=== PATIENT | female | born 1950 | race Caucasian/White ===

== ENCOUNTER 2016-10-29 13:13 | Observation (INO) | payer BC, OTHER ==
[~2016-10-29] VITALS: Ht 165.1 cm; Wt 64.6 kg
[~2016-10-29 13:13] MED LIST: ASPI-664 PO; BENA20TA48 PO; CLONIDINE; IBUP-1542 PO; LORA10CA PO; MTF1000T PO; NOVOLOG MIX; TRAZ100T15 PO; ZOLP5TAB PO; [UNRECOGNIZED DRUG - OTHER]; fenofibrate; flonase nasal spray
[2016-10-29] MEDS ORDERED: NITROGLYCERIN 2% 1 GM OINT PKT TD STA (13:53)
[2016-10-29] MEDS ORDERED: ASPIRIN 81 MG TAB PO STA (13:53)
[2016-10-29] MEDS ORDERED: NITROGLYCERIN (SL) 0.4 MG TAB SL PRN ×2 (14:00→17:00)
[2016-10-29 14:02] LABS: BASOPHILS % 0.2 % (0.0-2.0); EOSINOPHILS % 0.4 % (0.0-7.0); HEMATOCRIT 31.9 % (37.0-47.0); HEMOGLOBIN 10.7 g/dl (12.0-16.0); LYMPHOCYTES # 2.5 10^3/ul (0.8-2.9); LYMPHOCYTES % 30.3 % (15.0-51.0); MEAN CORPUSCULAR HEMOGLOBIN 31.5 pg (29.0-33.0); MEAN CORPUSCULAR HGB CONC 33.5 g/dl (32.0-37.0); MEAN CORPUSCULAR VOLUME 93.8 fl (82.0-101.0); MEAN PLATELET VOLUME 10.9 fl (7.4-10.4); MONOCYTE # 0.6 10^3/ul (0.3-0.9); MONOCYTES % 7.2 % (0.0-11.0); NEUTROPHIL # 5.1 10^3/ul (1.6-7.5); NEUTROPHILS % 61.4 % (39.0-77.0); PLATELET COUNT 225 10^3/UL (140-415); RED CELL DISTRIBUTION WIDTH 13.4 % (11.5-14.5); WHITE BLOOD COUNT 8.3 10^3/ul (4.8-10.8)
--- NOTE | 2016-10-29 14:17 | RADRPT ---
PROCEDURE: Ultrasound of the right lower extremity venous system. CLINICAL INDICATION: Right lower extremity pain.. TECHNIQUE: Mccarty scale with and without compression, color doppler, spectral doppler of the venous system of the right lower extremity was performed. Venous augmentation maneuvers were utilized. COMPARISON: No prior studies are available for comparison. FINDINGS: RIGHT: Common femoral vein:Patent and compressible. Femoral vein:Patent and compressible. Popliteal vein:Patent and compressible. Visualized calf veins:Patent and compressible. Soft tissues:Normal IMPRESSION: 1. No evidence of deep vein thrombosis. RPTAT: [facility] Physician Donnell Date Time Electronically viewed and signed by Physician Donnell on 10/29/2016 14:17 /
--- NOTE | 2016-10-29 14:23 | RADRPT ---
PROCEDURE: XR Chest. CLINICAL INDICATION: Chest pain. Shortness of breath. TECHNIQUE: Single frontal chest x-ray. COMPARISON: 05/23/2014 FINDINGS: The lungs are clear of acute infiltrates, edema, effusions, or masses. Calcific atherosclerosis of t he aorta is present.. The cardiomediastinal silhouette is unremarkable. The osseous structures are intact. IMPRESSION: No acute cardiopulmonary disease. RPTAT: JJ .Bakari Marlow MD, MD Date Time Electronically viewed and signed by .Bakari Marlow MD, on 10/29/2016 14:23 .L/
[2016-10-29 14:28] LABS: ALANINE AMINOTRANSFERASE 12 IU/L (13-69); ALBUMIN/GLOBULIN RATIO 1.17; ALKALINE PHOSPHATASE 99 IU/L (42-121); ANION GAP 23 (8-16); ASPARTATE AMINO TRANSFERASE 24 IU/L (15-46); BILIRUBIN,INDIRECT 0.2 mg/dl (0-1.1); BILIRUBIN,TOTAL 0.2 mg/dl (0.2-1.3); BLOOD UREA NITROGEN 25 mg/dl (7-20); CALCIUM 9.8 mg/dl (8.4-10.2); CARBON DIOXIDE 27 mmol/L (21-31); CHLORIDE 95 mmol/L (97-110); CREATININE 1.18 mg/dl (0.44-1.00); GLUCOSE 117 mg/dl (70-220); POTASSIUM 4.7 mmol/L (3.5-5.1); SODIUM 140 mmol/L (135-144); TOTAL PROTEIN 7.4 g/dl (6.1-8.1)
[2016-10-29 14:42] LABS: TROPONIN-I < 0.012 ng/ml (0.00-0.12)
[2016-10-29] MEDS ORDERED: ASPI81TA3 PO (15:16)
[2016-10-29] MEDS ORDERED: FAMO40TA52 PO (15:17)
[2016-10-29] MEDS ORDERED: ATOR10TA65 PO (15:17)
[2016-10-29] MEDS ORDERED: METF1000 PO ×2 (15:18→15:52)
[2016-10-29] MEDS ORDERED: METO-448 PO (15:51)
[2016-10-29] MEDS ORDERED: BENA20TA48 PO (15:52)
[2016-10-29] MEDS ORDERED: ASPI-664 PO (15:52)
[2016-10-29] MEDS ORDERED: ATOR80TA75 PO (15:53)
[2016-10-29] MEDS ORDERED: GLIP5TAB13 PO (15:53)
[2016-10-29] MEDS ORDERED: ZOLP5TAB7 PO (15:53)
[2016-10-29] MEDS ORDERED: SITA100T8 PO (15:53)
[2016-10-29] MEDS ORDERED: ERGO500037 PO (15:54)
[2016-10-29] MEDS ORDERED: NATE120T PO (15:55)
[2016-10-29] MEDS ORDERED: ACETAMINOPHEN 325 MG TAB PO PRN ×2 (16:30→17:00)
[2016-10-29] MEDS ORDERED: ONDANSETRON 4 MG INJ IV PRN ×2 (16:30→17:00)
--- NOTE | 2016-10-29 16:34 | ERA ---
ER Documentation Chief Complaint Date/Time DATE: 10/29/16 TIME: 16:31 Chief Complaint RT LEG PAIN , FEELING ANXIOUS INTERMITTENTLY SINCE WEDNESDAY HPI Patient is a 66-year-old female with hypertension and diabetes who presents with chest pain. She has left-sided chest pain shortness of breath which started on Wednesday. The pain comes and goes. The pain is worse at night. The patient has right-sided leg pain as well. There are no fevers and no cough. She has had no treatment as of yet. Upon review of old medical records this is the patient's third visit to the ER since 2013. Her primary doctor is Dr. Valera. ROS All systems reviewed and are negative except as per history of present illness. Medications Home Meds Reported Medications Nateglinide* (Nateglinide*) 120 Mg Tablet, 120 MG PO AC MEALS, TAB 10/29/16 Ergocalciferol (Vitamin D2) (VITAMIN D2) 50,000 Unit Capsule, 12472 UNIT PO Q7D , CAP 10/29/16 Sitagliptin* (Januvia*) 100 Mg Tablet, 100 MG PO DAILY, #30 TAB 10/29/16 Glipizide* (Glipizide*) 5 Mg Tablet, 5 MG PO AC BREAKFAST, TAB 10/29/16 Zolpidem Tartrate* (Zolpidem Tartrate*) 5 Mg Tablet, 5 MG PO QHS Y for INSOMNIA , #30 TAB 10/29/16 Atorvastatin* (Atorvastatin*) 80 Mg Tablet, 80 MG PO QHS, #30 TAB 10/29/16 Metformin Hcl* (Metformin Hcl*) 1,000 Mg Tablet, 1000 MG PO WITH BREAKFAST DINNE , #60 TAB 10/29/16 Benazepril Hcl* (Benazepril Hcl*) 20 Mg Tablet, 20 MG PO DAILY, #30 TAB 10/29/16 Aspirin* (Aspirin* EC) 81 Mg Tablet.dr, 81 MG PO DAILY, TAB 10/29/16 Metoprolol Tartrate* (Lopressor*) 25 Mg Tab, 25 MG PO BID, #60 TAB 10/29/16 Discontinued Reported Medications Metformin Hcl* (Metformin Hcl*) 1,000 Mg Tablet, 1000 MG PO WITH BREAKFAST DINNE , #60 TAB 10/29/16 Atorvastatin Calcium (Atorvastatin Calcium) 10 Mg Tablet, 10 MG PO QHS, #30 TAB 10/29/16 Famotidine* (Famotidine*) 40 Mg Tablet, 20 MG PO BID, #60 TAB 10/29/16 Aspirin* (Aspirin* Chew) 81 Mg Tab.chew, 81 MG PO DAILY, TAB.CHEW 10/29/16 [novolog mix 70/30] No Conflict Check 11/07/13 Zolpidem Tartrate* (Ambien*) 5 Mg Tablet, 5 MG PO HS Y for INSOMNIA, TAB 11/07/13 [flonase nasal spray] No Conflict Check 11/07/13 [clonidine0.1 mg] No Conflict Check 11/07/13 [fenofibrate] No Conflict Check 11/07/13 Metformin* (Glucophage*) 1,000 Mg Tablet, 1000 MG PO BID, TAB 11/07/13 Benazepril Hcl* (Benazepril Hcl*) 20 Mg Tablet, 20 MG PO DAILY, TAB 11/07/13 Loratadine* (Claritin*) 10 Mg Capsule, 10 MG PO DAILY, #1 CAP 11/07/13 Ibuprofen* (Ibuprofen*) 600 Mg Tablet, 600 MG PO Q8 Y for PAIN, #1 TAB 11/07/13 Aspirin* (Aspirin* EC) 81 Mg Tablet.dr, 81 MG PO DAILY, #1 TAB 11/07/13 [family to bring meds] No Conflict Check 11/06/13 Trazodone Hcl* (Trazodone Hcl*) 100 Mg Tablet, 100 MG PO BID, TAB 11/06/13 Allergies Allergies: Coded Allergies: Penicillins (Verified Allergy, Unknown, 10/29/16) trazodone (Verified Allergy, Unknown, 10/29/16) PMhx/Soc History of Surgery: No Anesthesia Reaction: No Hx Neurological Disorder: No Hx Respiratory Disorders: No Hx Cardiac Disorders: Yes (HTN) Hx Psychiatric Problems: No Hx Miscellaneous Medical Probl: Yes (see note) Hx Alcohol Use: No Hx Substance Use: No Hx Tobacco Use: No Smoking Status: Never smoker FmHx Family History: No coronary disease Physical Exam Vitals Vital Signs Date Time Temp Pulse Resp B/P Pulse Ox O2 Delivery O2 Flow Rate FiO2 10/29/16 14:54 98.1 76 18 118/60 100 Room Air 10/29/16 13:16 98.1 76 18 134/65 98 Physical Exam Const: No acute distress Head: Atraumatic Eyes: Normal Conjunctiva ENT: Normal External Ears, Nose and Mouth. Neck: Full range of motion..~ No meningismus. Resp: Clear to auscultation bilaterally Cardio: Regular rate and rhythm, no murmurs Abd: Soft, non tender, non distended. Normal bowel sounds Skin: No petechiae or rashes Back: No midline or flank tenderness Ext: No cyanosis, or edema Neur: Awake and alert Psych: Normal Mood and Affect Result Diagram: 10/29/16 1355 10/29/16 1355 Results 24 hrs Laboratory Tests Test 10/29/16 13:55 White Blood Count 8.310^3/ul Red Blood Count 3.4010^6/ul Hemoglobin 10.7g/dl Hematocrit 31.9% Mean Corpuscular Volume 93.8fl Mean Corpuscular Hemoglobin 31.5pg Mean Corpuscular Hemoglobin Concent 33.5g/dl Red Cell Distribution Width 13.4% Platelet Count 80381^3/UL Mean Platelet Volume 10.9fl Neutrophils % 61.4% Lymphocytes % 30.3% Monocytes % 7.2% Eosinophils % 0.4% Basophils % 0.2% Nucleated Red Blood Cells % 0.0/100WBC Neutrophils # 5.110^3/ul Lymphocytes # 2.510^3/ul Monocytes # 0.610^3/ul Eosinophils # 0.010^3/ul Basophils # 0.010^3/ul Nucleated Red Blood Cells # 0.010^3/ul Sodium Level 140mmol/L Potassium Level 4.7mmol/L Chloride Level 95mmol/L Carbon Dioxide Level 27mmol/L Anion Gap 23 Blood Urea Nitrogen 25mg/dl Creatinine 1.18mg/dl Glucose Level 117mg/dl Calcium Level 9.8mg/dl Total Bilirubin 0.2mg/dl Direct Bilirubin 0.00mg/dl Indirect Bilirubin 0.2mg/dl Aspartate Amino Transf (AST/SGOT) 24IU/L Alanine Aminotransferase (ALT/SGPT) 12IU/L Alkaline Phosphatase 99IU/L Troponin I < 0.012ng/ml Total Protein 7.4g/dl Albumin 4.0g/dl Globulin 3.40g/dl Albumin/Globulin Ratio 1.17 Current Medications Medications (Trade) Dose Ordered Sig/Joselo Route PRN Reason Start Time Stop Time Status Last Admin Dose Admin Aspirin (Aspirin) 162 mg ONCE STAT PO 10/29/16 13:53 10/29/16 13:54 DC 10/29/16 14:35 Nitroglycerin (Nitroglycerin 2% Oint) 1 inch ONCE STAT TD 10/29/16 13:53 10/29/16 13:54 DC Nitroglycerin (Nitroglycerin (Sl Tab) 0.4 Mg) 1 tab Q5M UP TO 3 DOSES PRN SL CHEST PAIN 10/29/16 14:00 10/29/16 14:35 Ondansetron HCl (Zofran Inj) 4 mg ER BRIDGE PRN IV NAUSEA AND/OR VOMITING 10/29/16 16:30 10/30/16 16:29 Acetaminophen (Tylenol Tab) 650 mg ER BRIDGE PRN PO MILD PAIN/FEVER 10/29/16 16:30 10/30/16 16:29 Procedures/MDM EKG read by me: Rate/Rhythm: Regular rate and rhythm at a normal rate Intervals: Normal Impression: No evidence of ischemia or arrhythmia Ultrasound of the right lower extremity negative per radiology. Chest x-ray negative per radiology. Patient is a 66-year-old female with diabetes and hypertension who presents with chest pain. I am concerned for potential acute coronary syndrome. At this point I doubt pneumonia, pneumothorax, pulmonary embolism, or aortic dissection. The patient will be admitted to the care of Dr. Berger as she has [facility] and will be admitted to a telemetry bed. Dr. Berger did request a d- dimer to be added on to the laboratory studies which I have done. Departure Diagnosis: Primary Impression: Chest pain Qualified Code: R07.9 - Chest pain, unspecified type Additional Impression: Anemia Qualified Code: D64.9 - Anemia, unspecified type Condition: KARI Hackett MD Oct 29, 2016 16:34
[2016-10-29 16:42] LABS: D-DIMER 305.27 ng/ml (<460)
[2016-10-29] MEDS ORDERED: morphine 2 MG INJ IV PRN (17:00)
[2016-10-29] MEDS ORDERED: MAGNESIUM HYDROXIDE 30ML CUP PO PRN (17:00)
[2016-10-29] MEDS ORDERED: NACL 0.9% 3 ML SYG IV SCH (17:00)
[2016-10-29] MEDS ORDERED: HYDROCODONE/APAP (5/325) TAB PO PRN (17:00)
[2016-10-29] MEDS ORDERED: DOCUSATE SODIUM 100 MG CAP PO PRN (17:00)
[2016-10-29] MEDS ORDERED: LORAZEPAM 2 MG INJ IV PRN (17:00)
[2016-10-29] MEDS ORDERED: ZOLPIDEM 5 MG TAB PO PRN (17:00)
[2016-10-29] MEDS ORDERED: BISACODYL 10 MG SUPP PR PRN (17:00)
[2016-10-29] MEDS ORDERED: GLUCOSE GEL 15 GRAM TUBE BUCCAL PRN (17:30)
[2016-10-29] MEDS ORDERED: DEXTROSE 50% 50 ML SYRINGE IV PRN ×2 (17:30)
[2016-10-29] MEDS ORDERED: GLUCAGON 1 MG INJ IM PRN (17:30)
[2016-10-29] MEDS ORDERED: GLUCOSE GEL 15 GRAM TUBE PO PRN ×2 (17:30)
[2016-10-29 18:14] VITALS: TEMP 98.3
[2016-10-29] MEDS ORDERED: hydrALAzine 20 MG INJ IV PRN (19:00)
--- NOTE | 2016-10-29 19:10 | HP ---
Date/Time of Note Date/Time of Note DATE: 10/29/16 TIME: 19:03 Assessment/Plan VTE Prophylaxis VTE Prophylaxis Intervention: LMWH Assessment/Plan Assessment/Plan 66-year-old female: 1. Left-sided chest pressure with dyspnea and paroxysmal nocturnal dyspnea mainly. Check BNP Patient already ruled out for venous thromboembolism with a negative Doppler of the lower extremity and normal d-dimer Cardiac enzymes 3, 2D echocardiogram, stress test in a.m. with Dr. Barba. Patient to be n.p.o. after midnight Continue current medications 2. Hypertension: Continue home medications 3. Hyperlipidemia: LFTs within normal, check fasting lipid panel, continue statin therapy 4. Diabetes mellitus, hemoglobin A1c of 8.6, continue current medications, sliding scale insulin, further adjustments as needed 5. Insomnia: Continue Ambien as needed Prophylaxis: Protonix for GI prophylaxis, Lovenox for DVT prophylaxis Disposition: Rule out acute coronary syndrome, 2D echocardiogram and stress test in a.m. HPI/ROS Admit Date/Time Admit Date/Time Hx of Present Illness Chief complaint: Left-sided chest pressure History of presenting illness: This is a 66-year-old female with hypertension, hyperlipidemia, diabetes mellitus, insomnia, who presented to the emergency department with intermittent left-sided chest pressure for the past week. Patient reports that it maybe happens at night when she lies down she starts feeling short of breath and has some left-sided chest pressure. He seems to improve when she sits up. She reports nausea but no vomiting. She denies any fevers cough. No gastrointestinal genitourinary no complaints. She denies any diaphoresis or dizziness. She reports that the chest pressure which is still present currently is on 07/13 She was also reporting a right lower extremity pain, Doppler of the right lower extremity is negative, d-dimer is normal. Patient is admitted to telemetry observation for rule out acute coronary syndrome given her risk factors and current complaints. EKG showed normal sinus rhythm with nonspecific T-wave changes. Cardiac enzymes negative 1. ROS Constitutional: nausea Cardiovascular: chest pain, paroxysmal nocturnal dyspnea Gastrointestinal: nausea Genitourinary: no complaints Musculoskeletal: no complaints Skin: no complaints Neurologic: no complaints PMH/Family/Social Past Medical History Insomnia Medical History: diabetes, high cholesterol, hypertension Past Surgical History Past Surgical Hx: no surgical history Family History Significant Family History: no pertinent family hx Social History Alcohol Use: none Smoking Status: Never smoker Drug Use: none Exam/Review of Systems Vital Signs Vitals Vital Signs Date Time Temp Pulse Resp B/P Pulse Ox O2 Delivery O2 Flow Rate FiO2 10/29/16 18:14 98.3 73 20 153/69 99 Room Air Exam Constitutional: alert, oriented, other (Primarily Georgian-speaking), well developed ENMT: nl external ears & nose Respiratory: clear to auscultation, normal air movement Cardiovascular: nl pulses, regular rate and rhythm Gastrointestinal: non-tender, soft Musculoskeletal: nl extremities to inspection, nl gait and stance Extremities: normal pulses Neurological: CALENDER FEEDER II-XII intact, nl mental status, nl speech, nl strength Labs Result Diagram: 10/29/16 1355 10/29/16 1355 Medications Medications Current Medications Sodium Chloride (NS) 1,000 ml @ 100 mls/hr Q10H IV ; Start 10/29/16 at 21:00 Lorazepam (Ativan) 0.5 mg Q6H PRN IV ANXIETY; Start 10/29/16 at 17:00 Ondansetron HCl (Zofran Inj) 4 mg Q6H PRN IV NAUSEA AND/OR VOMITING; Start at 17:00 Aspirin (Aspirin) 81 mg DAILY PO ; Start 10/30/16 at 09:00 Nitroglycerin (Nitroglycerin (Sl Tab) 0.4 Mg) 1 tab Q5M PRN SL CHEST PAIN; Start 10/29/16 at 17:00 Acetaminophen (Tylenol Tab) 650 mg Q6H PRN PO PAIN LEVEL 1-3 OR FEVER; Start at 17:00 Acetaminophen/ Hydrocodone Bitart ([place] (5/325)) 1 tab Q6H PRN PO PAIN LEVEL 4 -6; Start 10/29/16 at 17:00 Morphine Sulfate (morphine) 2 mg Q4H PRN IV PAIN LEVEL 7-10; Start 10/29/16 at 17:00 Docusate Sodium (Colace) 100 mg Q12H PRN PO CONSTIPATION; Start 10/29/16 at 17: 00 Magnesium Hydroxide (Milk Of Mag) 30 ml DAILY PRN PO CONSTIPATION; Start at 17:00 Bisacodyl (Dulcolax Supp) 10 mg DAILY PRN [place] CONSTIPATION; Start 10/29/16 at 17 :00 Pantoprazole (Protonix Tab) 40 mg BID@,18 PO ; Start 10/30/16 at 06:00 Enoxaparin Sodium (Lovenox) 40 mg DAILY SC ; Start 10/30/16 at 09:00 Atorvastatin Calcium (Lipitor) 80 mg QHS PO ; Start 10/29/16 at 21:00 Benazepril HCl (Lotensin) 20 mg DAILY PO ; Start 10/30/16 at 09:00 Ergocalciferol (Drisdol) 50,000 unit Q7D PO ; Start 11/04/16 at 09:00 Metoprolol Tartrate (Lopressor) 25 mg BID PO ; Start 10/29/16 at 21:00 Zolpidem Tartrate (Ambien) 5 mg QHS PRN PO INSOMNIA; Start 10/29/16 at 17:00 Linagliptin (Tradjenta) 5 mg DAILY PO ; Start 10/30/16 at 09:00 Diagnostic Test (Pha) (Accu-Chek) 1 ea 02 XX ; Start 10/30/16 at 02:00 Miscellaneous Information 1 ea NOTE XX ; Start 10/29/16 at 17:30 Glucose (Glutose) 15 gm Q15M PRN PO DECREASED GLUCOSE; Start 10/29/16 at 17:30 Glucose (Glutose) 22.5 gm Q15M PRN PO DECREASED GLUCOSE; Start 10/29/16 at 17: 30 Dextrose (D50w Syringe) 25 ml Q15M PRN IV DECREASED GLUCOSE; Start 10/29/16 at 17:30 Dextrose (D50w Syringe) 50 ml Q15M PRN IV DECREASED GLUCOSE; Start 10/29/16 at 17:30 Glucagon (Glucagen) 1 mg Q15M PRN IM DECREASED GLUCOSE; Start 10/29/16 at 17:30 Glucose (Glutose) 15 gm Q15M PRN BUCCAL DECREASED GLUCOSE; Start 10/29/16 at 17 :30 Hydralazine HCl (Apresoline) 10 mg Q8H PRN IV ELEVATED BLOOD PRESSURE; Start at 19:00; Status DEBBIE FARLEY Oct 29, 2016 19:10
[2016-10-29 20:00] VITALS: Ht 165.1 cm; Wt 64.6 kg
[2016-10-29 20:34] LABS: CREATINE KINASE 95 IU/L (23-200)
[2016-10-29 20:35] VITALS: PULSE 72
[2016-10-29 20:38] VITALS: BP 165/74; RESP 18
[2016-10-29 20:48] LABS: CK-MB 0.78 ng/ml (0.0-2.4)
[2016-10-29 20:49] LABS: TROPONIN-I < 0.012 ng/ml (0.00-0.12)
[2016-10-29] MEDS: INSULIN ASPART [NOVOLOG] 3 ML PEN SC SCH (21:00)
[2016-10-29] MEDS ORDERED: ATORVASTATIN 80 MG TAB PO SCH (21:00)
[2016-10-29] MEDS: METOPROLOL 25 MG TAB PO SCH (21:19)
[2016-10-29] MEDS: SOD CHLORIDE 0.9% 1,000 ML IV SCH (21:19)
[2016-10-29 23:52] VITALS: BP 154/66; RESP 17
[2016-10-30] VITALS (7 sets, daily range): BP systolic 134–155; BP diastolic 68–73; PULSE 67–74; RESP 17–18
[2016-10-30] MEDS ORDERED: ACCU-CHEK XX SCH (02:00)
[2016-10-30 02:22] LABS: CREATINE KINASE 84 IU/L (23-200)
[2016-10-30 02:35] LABS: CK-MB 0.62 ng/ml (0.0-2.4)
[2016-10-30 02:36] LABS: TROPONIN-I < 0.012 ng/ml (0.00-0.12)
[2016-10-30] MEDS ORDERED: PANTOPRAZOLE (EC) 40 MG TAB PO SCH (06:00)
[2016-10-30] MEDS: SOD CHLORIDE 0.9% 1,000 ML IV SCH ×2 (06:27→07:42)
[2016-10-30 06:54] LABS: BASOPHILS % 0.3 % (0.0-2.0); EOSINOPHILS % 0.5 % (0.0-7.0); HEMATOCRIT 31.5 % (37.0-47.0); HEMOGLOBIN 10.6 g/dl (12.0-16.0); LYMPHOCYTES # 2.8 10^3/ul (0.8-2.9); LYMPHOCYTES % 37.8 % (15.0-51.0); MEAN CORPUSCULAR HEMOGLOBIN 31.5 pg (29.0-33.0); MEAN CORPUSCULAR HGB CONC 33.7 g/dl (32.0-37.0); MEAN CORPUSCULAR VOLUME 93.8 fl (82.0-101.0); MEAN PLATELET VOLUME 11.3 fl (7.4-10.4); MONOCYTE # 0.6 10^3/ul (0.3-0.9); MONOCYTES % 8.5 % (0.0-11.0); NEUTROPHILS % 52.5 % (39.0-77.0); PLATELET COUNT 199 10^3/UL (140-415); RED BLOOD COUNT 3.36 10^6/ul (4.20-5.40); RED CELL DISTRIBUTION WIDTH 13.3 % (11.5-14.5); WHITE BLOOD COUNT 7.5 10^3/ul (4.8-10.8)
[2016-10-30] MEDS: NATEGLINIDE 120 MG TAB PO SCH ×2 (07:25→12:22)
[2016-10-30] MEDS: INSULIN ASPART [NOVOLOG] 3 ML PEN SC SCH ×2 (07:44→12:42)
[2016-10-30 07:46] LABS: CREATININE 0.96 mg/dl (0.44-1.00); MAGNESIUM 1.8 mg/dl (1.7-2.5); POTASSIUM 4.3 mmol/L (3.5-5.1)
[2016-10-30] MEDS ORDERED: ENOXAPARIN 40 MG/0.4 ML SYG SC SCH (09:00)
[2016-10-30] MEDS ORDERED: ASPIRIN 81 MG TAB PO SCH (09:00)
[2016-10-30] MEDS ORDERED: LINAGLIPTIN 5 MG TABLET PO SCH (09:00)
[2016-10-30] MEDS ORDERED: BENAZEPRIL 20 MG TAB PO SCH (09:00)
[2016-10-30] MEDS ORDERED: REGADENOSON 0.4 MG/5 ML SYG ONE (10:22)
--- NOTE | 2016-10-30 11:19 | RADRPT ---
Echocardiogram Report Patient Name: GUDELIA JESUS Gender: Female Date: 1950 Study Date: 30-Oct-2016 Manager Cash: Derick Roth CIERRA Location: [id number] Ref. Physician: ART STEWART Quality: Good Procedures: Transthoracic echocardiogram with complete 2D, M-Mode, and doppler examination. Indications: Chest Pain. 2D/M Mode Doppler Measurement Value Normal Ranges Measurement Value Normal Ranges LVIDd 2D 3.4 3.5 - 5.6 cm AV Peak Ezio 1.4 m/sec LVIDs 2D 1.4 2.1 - 4.1 cm AV Peak PG 8.0 mmHg FS 2D 58.4 % LVOT Peak Ezio 1.2 m/sec LVPWd 2D 1.1 0.6 - 1.1 cm LVOT Peak PG 6.0 mmHg IVSd 2D 1.1 0.6 - 1.1 cm MV E Peak Ezio 1.0 m/sec IVS/LVPW 2D 1.0 MV A Peak Ezio 1.2 m/sec AoR Diam 2D 2.4 2.0 - 3.7 cm MV E/A 0.8 LA/Ao 2D 1 0 - 1 MV Decel Time 331 msec EDV 2D 39.0 cm3 MV E/A 0.8 ESV 2D 2.8 cm3 TR Peak Ezio 2.4 m/sec LA Dimen 2D 3.2 2.3 - 4.0 cm TR Peak PG 22.0 mmHg RVSP 25.0 mmHg Findings Left Ventricle: Normal left ventricular systolic function. Normal left ventricular cavity size. Mild concentric left ventricular hypertrophy. Ejection fraction is visually estimated at 65 %. Tissue Doppler/Mitral Doppler indices are consistent with impaired relaxation (Stage I diastolic dysfunction). Right Ventricle: Normal right ventricular size. Normal right ventricular systolic function. Left Atrium: The left atrium is normal in size. Right Atrium: The right atrium is normal in size. Mitral Valve: Mitral valve leaflets appear mildly thickened. Mild mitral annular calcification. Trace mitral regurgitation. Aortic Valve: No significant aortic stenosis or insufficiency. Aortic cusps appear mildly calcified. Tricuspid Valve: Normal appearance of the tricuspid valve. Estimated peak PA systolic pressure 25 mmHg. There is mild tricuspid regurgitation. Pulmonic Valve: Normal pulmonic valve appearance. Pericardium: Normal pericardium with no significant pericardial effusion. Aorta: Normal aortic root. IVC: Normal size and normal respiratory collapse consistent with normal right atrial pressure. Conclusions 1.Normal left ventricular systolic function. Normal left ventricular cavity size. Mild concentric left ventricular hypertrophy. Ejection fraction is visually estimated at 65 %. Tissue Doppler/Mitral Doppler indices are consistent with impaired relaxation (Stage I diastolic dysfunction). 2.Normal right ventricular size. Normal right ventricular systolic function. 3.The left atrium is normal in size. 4.The right atrium is normal in size. 5.Normal appearance of the tricuspid valve. Estimated peak PA systolic pressure 25 mmHg. There is mild tricuspid regurgitation. 6.No significant valvular stenosis or regurgitation seen of remaining visualized valves. 7.Normal pericardium with no significant pericardial effusion. Electronically Signed By: Art Stewart 30-Oct-2016 11:18:38 -0700 Patient Name: GUDELIA JESUS Study Date: 30-Oct-2016 [id number]
--- NOTE | 2016-10-30 11:51 | CONS ---
Date/Time of Note Date/Time of Note DATE: 10/30/16 TIME: 11:47 Assessment/Plan Assessment/Plan Additional Assessment/Plan Exertional fatigue with intermittent dyspnea Preserved ejection fraction Sleep apnea as per history Diabetes Hypertension Dyslipidemia -Serial cardiac enzymes have remained negative, ECG without any significant ischemic abnormalities, stress test ordered by primary team. Given atypical symptoms, if nuclear cardiac perfusion study is negative, no further inpatient cardiac workup needed at the current time. Consultation Date/Type/Reason Admit Date/Time Type of Consultation: cv Reason for Consultation Fatigue and shortness of breath Hx of Present Illness This is a 66-year-old female with past medical history of hypertension, diabetes who presents with multiple complaints. Discussed with patient via highballer, her main complaint has been fatigue with ambulation. She denies exertional chest pain or shortness of breath but just complains of severe fatigue. She does also tell me that she has sleep apnea and she has been waking up with a dry mouth and throat every morning. She denies any chest pain at rest or with activity. She denies any paroxysmal nocturnal dyspnea. She denies any lower extremity edema. She denies any abdominal pain or nausea. 12 point review of systems was performed with all pertinent positives and negatives mentioned above and all else is negative Cardiovascular: chest pain, paroxysmal nocturnal dyspnea Gastrointestinal: nausea Genitourinary: no complaints Musculoskeletal: no complaints Skin: no complaints Neurologic: no complaints Past Medical History Medical History: diabetes, high cholesterol, hypertension Past Surgical History Past Surgical Hx: no surgical history Family History Significant Family History: no pertinent family hx Social History Alcohol Use: none Smoking Status: Never smoker Drug Use: none Exam/Review of Systems Vital Signs Vitals Vital Signs Date Time Temp Pulse Resp B/P Pulse Ox O2 Delivery O2 Flow Rate FiO2 10/30/16 08:05 70 10/30/16 07:19 97.8 18 134/73 94 10/29/16 18:14 Room Air Intake and Output 10/29/16 10/29/16 10/30/16 14:59 22:59 06:59 Intake Total 1670 ml Balance 1670 ml Exam No apparent distress Constitutional: alert, oriented Head: normocephalic Respiratory: other (Coarse breath sounds bilaterally, no wheezing) Cardiovascular: other (S1-S2 heard), regular rate and rhythm, systolic murmur Gastrointestinal: bowel sounds, non-tender, soft Extremities: other (No edema) Results Result Diagram: 10/30/16 0608 10/30/16 0608 Results 24 hrs Laboratory Tests Test 10/29/16 13:55 10/29/16 20:05 10/29/16 21:16 10/30/16 01:52 White Blood Count 8.3 Red Blood Count 3.40 L Hemoglobin 10.7 L Hematocrit 31.9 L Mean Corpuscular Volume 93.8 Mean Corpuscular Hemoglobin 31.5 Mean Corpuscular Hemoglobin Concent 33.5 Red Cell Distribution Width 13.4 Platelet Count 225 Mean Platelet Volume 10.9 H Neutrophils % 61.4 Lymphocytes % 30.3 Monocytes % 7.2 Eosinophils % 0.4 Basophils % 0.2 Nucleated Red Blood Cells % 0.0 Neutrophils # 5.1 Lymphocytes # 2.5 Monocytes # 0.6 Eosinophils # 0.0 Basophils # 0.0 Nucleated Red Blood Cells # 0.0 D-Dimer 305.27 D-Dimer Comment Sodium Level 140 Potassium Level 4.7 Chloride Level 95 L Carbon Dioxide Level 27 Anion Gap 23 H Blood Urea Nitrogen 25 H Creatinine 1.18 H Glucose Level 117 Hemoglobin A1c 8.6 H Calcium Level 9.8 Total Bilirubin 0.2 Direct Bilirubin 0.00 Indirect Bilirubin 0.2 Aspartate Amino Transf (AST/SGOT) 24 Alanine Aminotransferase (ALT/SGPT) 12 L Alkaline Phosphatase 99 Troponin I < 0.012 < 0.012 < 0.012 B-Type Natriuretic Peptide 90 Total Protein 7.4 Albumin 4.0 Globulin 3.40 H Albumin/Globulin Ratio 1.17 Creatine Kinase 95 84 Creatine Kinase Index 0.8 0.7 Creatinine Kinase MB (Mass) 0.78 0.62 Bedside Glucose 99 Test 10/30/16 06:08 10/30/16 07:43 White Blood Count 7.5 Red Blood Count 3.36 L Hemoglobin 10.6 L Hematocrit 31.5 L Mean Corpuscular Volume 93.8 Mean Corpuscular Hemoglobin 31.5 Mean Corpuscular Hemoglobin Concent 33.7 Red Cell Distribution Width 13.3 Platelet Count 199 Mean Platelet Volume 11.3 H Neutrophils % 52.5 Lymphocytes % 37.8 Monocytes % 8.5 Eosinophils % 0.5 Basophils % 0.3 Nucleated Red Blood Cells % 0.0 Neutrophils # 4.0 Lymphocytes # 2.8 Monocytes # 0.6 Eosinophils # 0.0 Basophils # 0.0 Nucleated Red Blood Cells # 0.0 Sodium Level 142 Potassium Level 4.3 Chloride Level 103 Carbon Dioxide Level 25 Anion Gap 18 H Blood Urea Nitrogen 18 Creatinine 0.96 Glucose Level 102 Calcium Level 9.0 Magnesium Level 1.8 Triglycerides Level 632 H Cholesterol Level 206 H LDL Cholesterol, Calculated 46 HDL Cholesterol 34 L Cholesterol/HDL Ratio 6.0 Bedside Glucose 121 Medications Medications Current Medications Sodium Chloride (NS) 1,000 ml @ 100 mls/hr Q10H IV Last administered on 07:42; Admin Dose 100 MLS/HR; Start 10/29/16 at 21:00 Lorazepam (Ativan) 0.5 mg Q6H PRN IV ANXIETY; Start 10/29/16 at 17:00 Ondansetron HCl (Zofran Inj) 4 mg Q6H PRN IV NAUSEA AND/OR VOMITING; Start at 17:00 Aspirin (Aspirin) 81 mg DAILY PO ; Start 10/30/16 at 09:00 Nitroglycerin (Nitroglycerin (Sl Tab) 0.4 Mg) 1 tab Q5M PRN SL CHEST PAIN; Start 10/29/16 at 17:00 Acetaminophen (Tylenol Tab) 650 mg Q6H PRN PO PAIN LEVEL 1-3 OR FEVER; Start at 17:00 Acetaminophen/ Hydrocodone Bitart ([place] (5/325)) 1 tab Q6H PRN PO PAIN LEVEL 4 -6 Last administered on 10/30/16 04:12; Admin Dose 1 TAB; Start 10/29/16 at 17: 00 Morphine Sulfate (morphine) 2 mg Q4H PRN IV PAIN LEVEL 7-10; Start 10/29/16 at 17:00 Docusate Sodium (Colace) 100 mg Q12H PRN PO CONSTIPATION; Start 10/29/16 at 17: 00 Magnesium Hydroxide (Milk Of Mag) 30 ml DAILY PRN PO CONSTIPATION; Start at 17:00 Bisacodyl (Dulcolax Supp) 10 mg DAILY PRN IN CONSTIPATION; Start 10/29/16 at 17 :00 Pantoprazole (Protonix Tab) 40 mg BID@06,18 PO Last administered on 10/30/16 06:27; Admin Dose 40 MG; Start 10/30/16 at 06:00 Enoxaparin Sodium (Lovenox) 40 mg DAILY SC ; Start 10/30/16 at 09:00 Atorvastatin Calcium (Lipitor) 80 mg QHS PO Last administered on 10/29/16 21: 19; Admin Dose 80 MG; Start 10/29/16 at 21:00 Benazepril HCl (Lotensin) 20 mg DAILY PO ; Start 10/30/16 at 09:00 Ergocalciferol (Drisdol) 50,000 unit Q7D PO ; Start 11/04/16 at 09:00 Metoprolol Tartrate (Lopressor) 25 mg BID PO Last administered on 10/29/16 21: 19; Admin Dose 25 MG; Start 10/29/16 at 21:00 Zolpidem Tartrate (Ambien) 5 mg QHS PRN PO INSOMNIA; Start 10/29/16 at 17:00 Linagliptin (Tradjenta) 5 mg DAILY PO ; Start 10/30/16 at 09:00 Diagnostic Test (Pha) (Accu-Chek) 1 ea 02 XX ; Start 10/30/16 at 02:00 Miscellaneous Information 1 ea NOTE XX ; Start 10/29/16 at 17:30 Glucose (Glutose) 15 gm Q15M PRN PO DECREASED GLUCOSE; Start 10/29/16 at 17:30 Glucose (Glutose) 22.5 gm Q15M PRN PO DECREASED GLUCOSE; Start 10/29/16 at 17: 30 Dextrose (D50w Syringe) 25 ml Q15M PRN IV DECREASED GLUCOSE; Start 10/29/16 at 17:30 Dextrose (D50w Syringe) 50 ml Q15M PRN IV DECREASED GLUCOSE; Start 10/29/16 at 17:30 Glucagon (Glucagen) 1 mg Q15M PRN IM DECREASED GLUCOSE; Start 10/29/16 at 17:30 Glucose (Glutose) 15 gm Q15M PRN BUCCAL DECREASED GLUCOSE; Start 10/29/16 at 17 :30 Hydralazine HCl (Apresoline) 10 mg Q8H PRN IV ELEVATED BLOOD PRESSURE; Start at 19:00 Procedures Procedures Sinus rhythm, normal QRS duration, nonspecific T-wave abnormalities Art Barba DO Oct 30, 2016 11:51
--- NOTE | 2016-10-30 11:55 | EN ---
Date/Time of Note Date/Time of Note DATE: 10/30/16 TIME: 11:53 Event Note Cardiology Cardiology Event Note Lexiscan ECG report Date of procedure 10/30/2016 This is a 66-year-old female who has a past medical history of diabetes and hypertension who presents with fatigue and shortness of breath Baseline ECG sinus rhythm at 63 bpm, QRS 90 ms, nonspecific T-wave abnormalities Lexiscan administered as per protocol Symptoms of shortness of breath and chest discomfort which resolved ECG with no significant changes No arrhythmias seen Peak blood pressure 184/83 ECG interpretation is nonischemic The nuclear portion will be interpreted by radiology colleagues Art Barba DO Oct 30, 2016 11:54
--- NOTE | 2016-10-30 12:17 | RADRPT ---
PROCEDURE: Lexiscan myocardial perfusion study CLINICAL INDICATION: 66 -year-old patient complaining of chest pain. TECHNIQUE: Lexiscan 0.4 mg intravenously separate acquisition gated myocardial perfusion SPECT usi ng Tc 99m Myoview 29.4 mCi intravenously at stress and Tc-99m Myoview, 9.6 mCi intravenously at rest was performed using the rest/stress sequence. Poststress Myoview SPECT images were obtained in the supine position. COMPARISON: No prior studies. FINDINGS: Perfusion images reveal no evidence of perfusion defects. Lexiscan post stress gated SPECT images demonstrate no wall motion abnormalities. IMPRESSION: 1. Normal study with no evidence of perfusion defects or wall motion abnormalities. 2. The left ventricle ejection fraction at stress is greater than 70%. A call report was made to Dr. Barba at 12:15 p.m. on October 30, 2016. RPTAT: HH .Quita Fermin MD, Date Time Electronically viewed and signed by .Quita Fermin MD, MD on 10/30/2016 12:16 .L/
[2016-10-30] MEDS: METOPROLOL 25 MG TAB PO SCH (12:21)
--- NOTE | 2016-10-30 14:31 | PDOCDIS ---
Discharge Instructions CONDITION Patient Condition: Stable HOME CARE INSTRUCTIONS: Special Diet: DIABETIC DIET. ACTIVITY: Activity Restrictions: Slowly Increase Activity FOLLOW UP/APPOINTMENTS Follow-up Plan Follow-up with primary care physician within 1 week Referral to pulmonary as an outpatient [facility] for sleep study and evaluation for obstructive sleep apnea DEBBIE DONG Oct 30, 2016 14:31
--- NOTE | 2016-10-30 14:41 | PN ---
Date/Time of Note Date/Time of Note DATE: 10/30/16 TIME: 14:33 Assessment/Plan VTE Prophylaxis VTE Prophylaxis Intervention: LMWH Lines/Catheters [facility] Peripheral IV Urinary Cath still in place: No Assessment/Plan Assessment/Plan 66-year-old female: 1. Left-sided chest pressure with dyspnea and paroxysmal nocturnal dyspnea mainly. BNP within normal, cardiac enzymes negative 3, 2D echocardiogram within normal. Stress test negative today, Patient also ruled out for venous thromboembolism with a negative Doppler of the lower extremity and normal d-dimer Continue outpatient medications Discharge home and follow with primary care physician 2. Hypertension: Continue home medications 3. Hyperlipidemia: LFTs within normal, continue current statin therapy 4. Diabetes mellitus, hemoglobin A1c of 8.6, continue current medications. 5. Insomnia but patient also complains of obstructive sleep apnea which is odd as she is taking also Ambien. She also mentioned something about anxiety disorder, I told her to follow-up with her primary care physician. She also will be referred to outpatient sleep study. Prophylaxis: Protonix for GI prophylaxis, Lovenox for DVT prophylaxis Disposition: Discharge home, follow up with his primary care physician within 1 week, referral to outpatient sleep study Subjective 24 Hr Interval Summary Free Text/Dictation Patient doing well, no chest pain. She complains of what seems to be obstructive sleep apnea, she reports that she has been on CPAP before but did not work, she is asking for prescription for a mouthguard which will not be given. Patient will be referred to outpatient sleep study Exam/Review of Systems Vital Signs Vitals Vital Signs Date Time Temp Pulse Resp B/P Pulse Ox O2 Delivery O2 Flow Rate FiO2 10/30/16 12:36 67 10/30/16 11:53 97.8 18 139/68 98 10/29/16 18:14 Room Air Intake and Output 10/29/16 10/29/16 10/30/16 15:00 23:00 07:00 Intake Total 1670 ml Balance 1670 ml Exam Constitutional: alert, oriented, well developed Respiratory: clear to auscultation, normal air movement Cardiovascular: nl pulses, regular rate and rhythm Gastrointestinal: non-tender, soft Musculoskeletal: nl extremities to inspection, nl gait and stance Extremities: normal pulses, other (No edema, clubbing or cyanosis) Neurological: MUSIC AGENT II-XII intact, nl mental status, nl speech, nl strength Results Result Diagram: 10/30/16 0608 10/30/16 0608 Results 24 hrs Laboratory Tests Test 10/29/16 20:05 10/29/16 21:16 10/30/16 01:52 10/30/16 06:08 Creatine Kinase 95 84 Creatine Kinase Index 0.8 0.7 Creatinine Kinase MB (Mass) 0.78 0.62 Troponin I < 0.012 < 0.012 Bedside Glucose 99 White Blood Count 7.5 Red Blood Count 3.36 L Hemoglobin 10.6 L Hematocrit 31.5 L Mean Corpuscular Volume 93.8 Mean Corpuscular Hemoglobin 31.5 Mean Corpuscular Hemoglobin Concent 33.7 Red Cell Distribution Width 13.3 Platelet Count 199 Mean Platelet Volume 11.3 H Neutrophils % 52.5 Lymphocytes % 37.8 Monocytes % 8.5 Eosinophils % 0.5 Basophils % 0.3 Nucleated Red Blood Cells % 0.0 Neutrophils # 4.0 Lymphocytes # 2.8 Monocytes # 0.6 Eosinophils # 0.0 Basophils # 0.0 Nucleated Red Blood Cells # 0.0 Sodium Level 142 Potassium Level 4.3 Chloride Level 103 Carbon Dioxide Level 25 Anion Gap 18 H Blood Urea Nitrogen 18 Creatinine 0.96 Glucose Level 102 Calcium Level 9.0 Magnesium Level 1.8 Triglycerides Level 632 H Cholesterol Level 206 H LDL Cholesterol, Calculated 46 HDL Cholesterol 34 L Cholesterol/HDL Ratio 6.0 Test 10/30/16 07:43 10/30/16 12:17 Bedside Glucose 121 163 Medications Medications Current Medications Sodium Chloride (NS) 1,000 ml @ 100 mls/hr Q10H IV Last administered on 07:42; Admin Dose 100 MLS/HR; Start 10/29/16 at 21:00 Lorazepam (Ativan) 0.5 mg Q6H PRN IV ANXIETY; Start 10/29/16 at 17:00 Ondansetron HCl (Zofran Inj) 4 mg Q6H PRN IV NAUSEA AND/OR VOMITING; Start at 17:00 Aspirin (Aspirin) 81 mg DAILY PO Last administered on 10/30/16 12:22; Admin Dose 81 MG; Start 10/30/16 at 09:00 Nitroglycerin (Nitroglycerin (Sl Tab) 0.4 Mg) 1 tab Q5M PRN SL CHEST PAIN; Start 10/29/16 at 17:00 Acetaminophen (Tylenol Tab) 650 mg Q6H PRN PO PAIN LEVEL 1-3 OR FEVER; Start at 17:00 Acetaminophen/ Hydrocodone Bitart ([place] (5/325)) 1 tab Q6H PRN PO PAIN LEVEL 4 -6 Last administered on 10/30/16 04:12; Admin Dose 1 TAB; Start 10/29/16 at 17: 00 Morphine Sulfate (morphine) 2 mg Q4H PRN IV PAIN LEVEL 7-10; Start 10/29/16 at 17:00 Docusate Sodium (Colace) 100 mg Q12H PRN PO CONSTIPATION; Start 10/29/16 at 17: 00 Magnesium Hydroxide (Milk Of Mag) 30 ml DAILY PRN PO CONSTIPATION; Start at 17:00 Bisacodyl (Dulcolax Supp) 10 mg DAILY PRN OR CONSTIPATION; Start 10/29/16 at 17 :00 Pantoprazole (Protonix Tab) 40 mg BID@06,18 PO Last administered on 10/30/16 06:27; Admin Dose 40 MG; Start 10/30/16 at 06:00 Enoxaparin Sodium (Lovenox) 40 mg DAILY SC Last administered on 10/30/16 12:23 ; Admin Dose 40 MG; Start 10/30/16 at 09:00 Atorvastatin Calcium (Lipitor) 80 mg QHS PO Last administered on 10/29/16 21: 19; Admin Dose 80 MG; Start 10/29/16 at 21:00 Benazepril HCl (Lotensin) 20 mg DAILY PO Last administered on 10/30/16 12:22; Admin Dose 20 MG; Start 10/30/16 at 09:00 Ergocalciferol (Drisdol) 50,000 unit Q7D PO ; Start 11/04/16 at 09:00 Metoprolol Tartrate (Lopressor) 25 mg BID PO Last administered on 10/30/16 12: 21; Admin Dose 25 MG; Start 10/29/16 at 21:00 Zolpidem Tartrate (Ambien) 5 mg QHS PRN PO INSOMNIA; Start 10/29/16 at 17:00 Linagliptin (Tradjenta) 5 mg DAILY PO Last administered on 10/30/16 12:22; Admin Dose 5 MG; Start 10/30/16 at 09:00 Diagnostic Test (Pha) (Accu-Chek) 1 ea 02 XX ; Start 10/30/16 at 02:00 Miscellaneous Information 1 ea NOTE XX ; Start 10/29/16 at 17:30 Glucose (Glutose) 15 gm Q15M PRN PO DECREASED GLUCOSE; Start 10/29/16 at 17:30 Glucose (Glutose) 22.5 gm Q15M PRN PO DECREASED GLUCOSE; Start 10/29/16 at 17: 30 Dextrose (D50w Syringe) 25 ml Q15M PRN IV DECREASED GLUCOSE; Start 10/29/16 at 17:30 Dextrose (D50w Syringe) 50 ml Q15M PRN IV DECREASED GLUCOSE; Start 10/29/16 at 17:30 Glucagon (Glucagen) 1 mg Q15M PRN IM DECREASED GLUCOSE; Start 10/29/16 at 17:30 Glucose (Glutose) 15 gm Q15M PRN BUCCAL DECREASED GLUCOSE; Start 10/29/16 at 17 :30 Hydralazine HCl (Apresoline) 10 mg Q8H PRN IV ELEVATED BLOOD PRESSURE; Start at 19:00 DEBBIE DONG Oct 30, 2016 14:41
[2016-11-04] MEDS ORDERED: ERGOCALCIFEROL 50,000 UNIT CAP PO SCH (09:00)
== END 2016-10-30 15:45 | disposition home or self-care (01) ==
LOC: FTE 13:13 → TEL 16:06
PROVIDERS: ADMIT Internal Medicine; ATTEND Internal Medicine
DX: R07.9 Chest pain, unspecified (principal); I10 Essential (primary) hypertension; E11.9 Type 2 diabetes mellitus without complications; E78.5 Hyperlipidemia, unspecified; E78.00 Pure hypercholesterolemia, unspecified; G47.00 Insomnia, unspecified; G47.30 Sleep apnea, unspecified; Z79.82 Long term (current) use of aspirin; Z79.84 Long term (current) use of oral hypoglycemic drugs; Z88.0 Allergy status to penicillin; Z88.6 Allergy status to analgesic agent
CPT/HCPCS: 71010; 78452; 80048; 80053; 80061; 82550; 82553; 82962; 83036; 83735; 83880; 84484; 85025; 85378; 93005; 93017; 93306; 93971; 99285; A9500; A9505; J1650; J2785; J7030; Z7500; Z7610; G0378

== ENCOUNTER 2018-03-21 13:28 | Emergency (ER) | END 2018-03-21 21:24 | disposition home or self-care (01) ==